=== PATIENT | male | born 1985 | race Caucasian/White ===

== ENCOUNTER 2023-10-15 14:13 | Emergency (ER) | payer MEDICAID ==
[~2023-10-15] VITALS: Ht 188 cm; Wt 108.9 kg
[2023-10-15 14:15] VITALS: BP_SYST 138; PULSE 92; RESP 18; TEMP 98.6; O2SAT 98
[2023-10-15] MEDS ORDERED: ACETAMINOPHEN 325 MG TABLET PO ONE (14:30)
[2023-10-15 15:49] VITALS: BP_SYST 138; PULSE 92; RESP 18; TEMP 98.6; O2SAT 98
== END 2023-10-15 15:48 | disposition home or self-care (01) ==
LOC: SED 14:13
DX: S60.221A Contusion of right hand, initial encounter (principal); S00.81XA Abrasion of other part of head, initial encounter; I10 Essential (primary) hypertension; F17.200 Nicotine dependence, unspecified, uncomplicated; Z79.899 Other long term (current) drug therapy; W18.40XA Slipping, tripping and stumbling without falling, unspecified, initial encounter; Y93.61 Activity, american tackle football; Y92.89 Other specified places as the place of occurrence of the external cause; Y99.8 Other external cause status
CPT/HCPCS: 99283